=== PATIENT | male | born 1995 | race American Indian/Alaskan Native ===

== ENCOUNTER 2016-08-13 18:02 | Emergency (ER) | payer OTHER ==
[2016-08-13 18:47] VITALS: BP 138/87
--- NOTE | 2016-08-13 18:59 | Emergency Department Report ---
Entered by JIMI HAMM, acting as scribe for VAN STEVENS NP. Chief Complaint: Chest Pain Stated Complaint: RIB PAIN Time Seen by Provider: 08/13/16 18:43 - HPI History of Present Illness: 21 y/o presents c/o 5/10, achy, right sided rib pain worsened by inhalations that began 6 days ago. Pt denies cough, SOB or any trauma to the area. - ROS Review of Systems: +right sided rib pain -cough -SOB - Exam Vital Signs: Vital Signs 08/13/16 18:45 Temperature 98.4 F Pulse Rate 48 L Respiratory 17 Rate Blood Pressure 138/87 O2 Sat by Pulse 100 Oximetry Physical Exam: thin male, no acute distress lungs diminished floyd, no wheezing MSE screening note: Focused history and physical exam performed. Due to findings the following was ordered: xr, ekg, neb due to pt's hx of asthma ED Disposition for MSE Condition: Stable This documentation as recorded by the scribe,JIMI HAMM,accurately reflects the service I personally performed and the decisions made by HILDA allen TRACY M , WEB OPERATIONS MANAGER.
[2016-08-13] MEDS: DUONEB 0.5 MG-3 MG/3 ML SOLN IH ONE (20:27)
--- NOTE | 2016-08-13 20:56 | Emergency Department Report ---
ED Chest Pain HPI - General Chief Complaint: Chest Pain Stated Complaint: RIB PAIN Time Seen by Provider: 08/13/16 18:43 Source: patient Mode of arrival: Ambulatory Limitations: No Limitations - History of Present Illness Initial Comments: 21 y/o presents c/o 5/10, achy, right sided rib pain worsened by inhalations that began 6 days ago. Pt denies cough, SOB or any trauma to the area. Patient denies any history of blood clots personally or in his family. Any swelling in his legs. He also reports that he was having chest pain earlier today that felt achy on the right side but now he feels better. Patient said he had asthma as a child but not now. MD Complaint: chest pain Onset/Timin -: days(s) Onset: during rest Pain Location: left chest (at rib cage) Pain Radiation: none Severity scale (0 -10): 0 Worsens With: nothing Context: other (unknown) Other Symptoms: denies: cough, fever, syncope, rash, acid taste in mouth, leg swelling, palpitations, burping Treatments Prior to Arrival: none Aspirin use within the Past 7 Days: (0) No - Related Data On Oral Contraceptives: No Previous Rx's Medication Instructions Recorded Last Taken Type Ibuprofen [Motrin] 600 mg PO Q8H PRN #15 tablet 08/13/16 Unknown Rx Allergies Allergy/AdvReac Type Severity Reaction Status Date / Time No Known Allergies Allergy Unverified 08/13/16 18:44 YULI score - Yuli Score Age > 65: (0) No Aspirin use within the Past 7 Days: (0) No 3 or more CAD Risk Factors: (0) No 2 or more Angina events in past 24 hrs: (0) No Known CAD with more than 50% Stenosis: (0) No Elevated Cardiac Markers: (0) No (not done) ST Deviation Greater than 0.5mm: (0) No YULI Score: 0 ED Review of Systems ROS: Stated complaint: RIB PAIN Other details as noted in HPI Comment: All other systems reviewed and negative Constitutional: denies: chills, fever Eyes: denies: eye discharge ENT: denies: throat pain Respiratory: denies: cough, shortness of breath, SOB with exertion, SOB at rest , stridor, wheezing Cardiovascular: chest pain (patient was having chest pain earlier but he said he is not having any at present. Pain at right rib area.). denies: palpitations, edema, syncope Gastrointestinal: denies: abdominal pain, nausea, vomiting, diarrhea Musculoskeletal: denies: back pain, arthralgia Skin: denies: rash Neurological: denies: headache, weakness, numbness, paresthesias, confusion, abnormal gait, vertigo ED Past Medical Hx - Past Medical History Previous Medical History?: Yes Hx Asthma: Yes - Surgical History Past Surgical History?: No - Family History Family history: no significant - Social History Smoking Status: Light Tobacco Smoker Substance Use Type: None - Medications Home Medications: Home Medications Medication Instructions Recorded Confirmed Last Taken Type Ibuprofen [Motrin] 600 mg PO Q8H PRN #15 tablet 08/13/16 Unknown Rx ED Physical Exam - General Limitations: No Limitations General appearance: alert, in no apparent distress - Head Head exam: Present: atraumatic, normocephalic, normal inspection - Eye Eye exam: Present: normal appearance, PERRL, EOMI. Absent: periorbital swelling , periorbital tenderness Pupils: Present: normal accommodation - Neck Neck exam: Present: normal inspection, full ROM. Absent: tenderness, lymphadenopathy - Respiratory Respiratory exam: Present: normal lung sounds bilaterally. Absent: respiratory distress, wheezes, rales, rhonchi, stridor, chest wall tenderness, accessory muscle use, decreased breath sounds, prolonged expiratory - Cardiovascular Cardiovascular Exam: Present: normal rhythm, bradycardia (asymptomatic), normal heart sounds - GI/Abdominal GI/Abdominal exam: Present: soft, normal bowel sounds. Absent: distended, tenderness, guarding, rebound, rigid - Extremities Exam Extremities exam: Present: normal inspection, full ROM, normal capillary refill. Absent: tenderness, pedal edema, joint swelling, calf tenderness - Back Exam Back exam: Present: normal inspection, full ROM. Absent: tenderness, CVA tenderness (R), CVA tenderness (L), muscle spasm, paraspinal tenderness, vertebral tenderness, rash noted - Neurological Exam Neurological exam: Present: alert, oriented X3, normal gait - Psychiatric Psychiatric exam: Present: normal affect, normal mood - Skin Skin exam: Present: warm, dry, intact, normal color. Absent: rash ED Course Vital Signs 08/13/16 08/13/16 08/13/16 18:45 20:27 20:35 Temperature 98.4 F Pulse Rate 48 L Pulse Rate [ 57 L 54 L Anterior Bilateral Throughout] Respiratory 17 Rate Respiratory 14 14 Rate [Anterior Bilateral Throughout] Blood Pressure 138/87 O2 Sat by Pulse 100 Oximetry 08/13/16 21:11 Temperature Pulse Rate 62 Pulse Rate [ Anterior Bilateral Throughout] Respiratory Rate Respiratory Rate [Anterior Bilateral Throughout] Blood Pressure O2 Sat by Pulse Oximetry Vital Signs 08/13/16 08/13/16 08/13/16 18:45 20:27 20:35 Temperature 98.4 F Pulse Rate 48 L Pulse Rate [ 57 L 54 L Anterior Bilateral Throughout] Respiratory 17 Rate Respiratory 14 14 Rate [Anterior Bilateral Throughout] Blood Pressure 138/87 O2 Sat by Pulse 100 Oximetry 08/13/16 21:11 Temperature Pulse Rate 62 Pulse Rate [ Anterior Bilateral Throughout] Respiratory Rate Respiratory Rate [Anterior Bilateral Throughout] Blood Pressure O2 Sat by Pulse Oximetry - Reevaluation(s) Reevaluation #1: 08/13/16 21:12 Patient stable throughout ED stay. He received nebulizer treatment was ordered in triage and I asked him if he felt better after treatment and he says yes. Patient said he was ready to go ED Medical Decision Making - EKG Data -: EKG Interpreted by Me (Dr. Adorno) Rate: normal, bradycardia (47 bpm. sinus bradycardia with sinus arrhythmia) - EKG Data Interpretation: no acute changes - Radiology Data Radiology results: report reviewed Chest x-ray revealed normal exam - Medical Decision Making ED course: Patient here with atypical chest pain/rib pain.0 criteria ,No need for further workup, as <2% chance of PE. I discussed the patient that this chest x-ray was negative for any acute findings. Patient discharged home in stable condition with prescription for Motrin. She given DuoNeb times one treatment in emergency room Critical care attestation.: If time is entered above; I have spent that time in minutes in the direct care of this critically ill patient, excluding procedure time. ED Disposition Clinical Impression: Atypical chest pain, Rib pain on right side Disposition: DISCHARGED TO HOME OR SELFCARE Is pt being admited?: No Does the pt Need Aspirin: No Condition: Stable Instructions: Chest Pain (ED) Additional Instructions: Please follow up with primary care physician in one to 2 days to follow-up chest and rib pain. Prescriptions: Ibuprofen [Motrin] 600 mg PO Q8H PRN #15 tablet PRN Reason: Pain Referrals: PRIMARY CAREMD [Primary Care Provider] - 08/15/16 [facility] [Outside] - 08/15/16 DANNA SERNA MD [Staff Physician] - 08/13/16 9:19 pm Forms: Work/School Release Form(ED)
--- NOTE | 2016-08-13 21:04 | XRay Report ---
FINAL REPORT PROCEDURE: XR CHEST ROUTINE 2V TECHNIQUE: PA and lateral chest radiographs were obtained. CPT 30998 HISTORY: chest pain COMPARISON: No prior studies are available for comparison. FINDINGS: Heart: Normal. Mediastinum/Vessels: Normal. Lungs/Pleural space: Normal. Bony thorax: No acute osseous abnormality. Other: IMPRESSION: Normal examination.
== END 2016-08-13 21:57 | disposition home or self-care (01) ==
LOC: ED 18:02
DX: R07.89 Other chest pain (principal); R07.81 Pleurodynia; J45.909 Unspecified asthma, uncomplicated; Z87.891 Personal history of nicotine dependence
CPT/HCPCS: 71020; 93005; 93010; 94640